=== PATIENT | female | born 1995 | race Hispanic/Latino ===

== ENCOUNTER 2017-11-30 04:13 | Inpatient (IN) | payer OTHER ==
[2017-11-29 13:24] LABS: RPR Titer ND
[2017-11-29 13:27] LABS: Urine Appearance CLOUDY; Urine Bilirubin NEGATIVE (NEG); Urine Blood NEGATIVE (NEG); Urine Color YELLOW; Urine Glucose NEGATIVE (NEG); Urine Protein NEGATIVE (NEG); Urine Specific Gravity 1.025 (1.005-1.030); Urine Urobilinogen 0.2 mg/dL (0.2-1.0); Urine pH 5.5 (5.0-7.0)
[2017-11-29 13:33] LABS: Absolute Lymphocytes (CBC) 1.8 K/uL (0.7-4.9); Absolute Monocytes 0.5 K/uL (0.1-1.3); Absolute Neutrophil 7.7 K/uL (1.8-8.0); Basophils % 0.4 % (0-1.3); Eosinophils % 0.5 % (0-4.4); Hematocrit 33.2 % (36.0-45.0); Lymphocytes % 17.6 % (15.3-44.8); MCH 28.3 pg (27.0-35.0); MCV 82.3 fL (80-100); MPV 9.8 fL (7.6-11.3); Monocytes % 5.4 % (3.3-12.3); RBC Red Blood Cell Count 4.03 M/uL (3.86-4.86)
[2017-11-29 13:33] LABS: Urine Microscopic Reflex NO UMIC
[2017-11-29 13:37] LABS: Protime INR 1.05
[2017-11-30] MEDS ORDERED: Ringers Lactate 1,000 ML IV PRN (04:44)
[2017-11-30] MEDS ORDERED: CEFAZOLIN 2 GM in NA CHLORIDE 0.9% 100 ML IVPB ONE (04:46)
[2017-11-30] MEDS ORDERED: CARBOPROST TROME 250 MCG/ML IM ONE (04:49)
[2017-11-30] MEDS ORDERED: METHYLERGONOVINE 0.2MG/ML AMP IM ONE (04:49)
[2017-11-30 04:54] VITALS: BMI 63.4
[2017-11-30] MEDS ORDERED: FAMOTIDINE 20 MG/2 ML VIAL IV ONE (05:00)
[2017-11-30] MEDS ORDERED: NA CIT/CITRIC AC 30 ML ORAL UDC PO ONE (05:00)
[2017-11-30] MEDS ORDERED: Ringers Lactate 1,000 ML IV SCH (05:00)
[2017-11-30] MEDS ORDERED: METOCLOPRAMIDE 10 MG/2mL INJ IV SCH (05:00)
[2017-11-30] MEDS ORDERED: CEFAZOLIN/SWI 2gm 2 GM/20 ML SYR ONE (05:09)
[2017-11-30] MEDS ORDERED: EPHEDRINE SULF 50 MG/ML SYR ONE (06:57)
[2017-11-30] MEDS ORDERED: MORPHINE SULFATE/PF 1 MG/ML (10 ML AMP) ONE (06:57)
[2017-11-30] MEDS ORDERED: OXYTOCIN 10 UNIT/ML ML IV ONE ×2 (06:57→08:14)
[2017-11-30] MEDS ORDERED: NS 0.9% VIAL 10 ML ONE (06:58)
[2017-11-30] MEDS ORDERED: BUPIVACAINE 0.75% (PF) 2 ML SP ONE (07:35)
[2017-11-30] MEDS ORDERED: LIDOCAINE 1% MPF 5 ML VIAL ONE (07:35)
[2017-11-30] MEDS ORDERED: MIDAZOLAM HCL 2 MG/2 ML INJ ONE (07:54)
[2017-11-30] MEDS ORDERED: KETAMINE HCL 500 MG/5 ML VIAL ONE (07:58)
--- NOTE | 2017-11-30 09:08 | RAD REPORT ---
EXAM DESCRIPTION: RAD - Abdomen Single View - 11/30/2017 4:38 am CLINICAL HISTORY: positioning COMPARISON: None. FINDINGS: Single gestation is identified. Positioning is breech with spine to the maternal right.
[2017-11-30] MEDS ORDERED: DOCUSATE NA/SENNA CONC 1 TAB PO PRN (09:25)
[2017-11-30] MEDS ORDERED: ONDANSETRON 4 MG (ODT) TAB PO PRN ×2 (09:25→14:28)
[2017-11-30] MEDS ORDERED: ACETAMINOPHEN 500 MG TAB PO PRN ×2 (09:25→14:28)
[2017-11-30] MEDS ORDERED: Oxycodone HCl/Acetaminophen 1 TAB TAB PO PRN ×4 (09:25→14:28)
[2017-11-30] MEDS ORDERED: BISACODYL 10 MG RECTAL SUPP RECT PRN ×2 (09:25→14:28)
[2017-11-30] MEDS ORDERED: D5LR 1,000 ML IV SCH (10:00)
--- NOTE | 2017-11-30 11:13 | OP ---
Surgeon: Wilson Castrejon MD Pin Ball Machine Mechanic: Payam Huddleston MD. Anesthesiologist: Dr. Calero. Indications: A 21-year-old, primigravida, 39 weeks 2 days, breech presentation, suspected macr osomia. Full preoperative counseling concerning procedure and possible complications including infec tion, blood loss, anesthetic complications, injury to bladder, bowel, ureter, postoperative complicat ions, clots in the legs. The patient knows fully well this does not constitute all the possible prob lems that could occur during or following surgery and knows because of her large size, she has increa sed risk for all of these complications. Anesthesia: Spinal block. Description Of Procedure: After prepping and draping, timeout was performed. A Pfannenstiel incisio n was created. Incision was carried to the fascia. The fascia was incised and incision carried martin sversely bilaterally. Anterior and posterior fascial planes were developed with both blunt and sharp dissection. The underlying rectus muscle was . Peritoneum entered bluntly. Low transvers e uterine incision created. A 9 pounds 5 ounce male infant was delivered. Apgars estimated to be 7 and 9 at 1 and 5 minutes. Cord blood specimen was obtained. The placenta was removed manually. Thornton rajan cleared of clot and blood and exteriorized. Mild uterine hypotonus. A 0.2 mg of Methergine IM. Estimated blood loss during the procedure 1100 cc. Cervical os dilated with ring clamp. Uterus fady sed with a running-locked stitch of 1 chromic followed by running-locked sutures on the right angle f or complete hemostasis. Gutters cleared of clot and blood. Inspection of suture line showed no furt her bleeding. The fascia was closed with 1 PDS running from either angle to the midline. Subcutaneo us tissue was closed with 2-0 plain. Absorbable ana paula placed and then metal ana paula. The patient had been given 2 g of Ancef prior to the procedure. Tolerated all procedures well. Transferred back to her room in good condition. Final Diagnoses: Term intrauterine 39 weeks 2 days, breech presentation, primary section, low transverse cervical, mild uterine hypertonicity, spinal block anesthesia. DAINEL/MONICA Voice ID: [id number] Report ID: [id number]
[2017-11-30] MEDS ORDERED: DIPHENHYDRAMINE 25 MG TAB/CAP PO PRN (14:28)
[2017-11-30] MEDS ORDERED: KETOROLAC 30 MG/ML INJ IM PRN (14:28)
[2017-11-30] MEDS ORDERED: ONDANSETRON 4 MG/2 ML VIAL IV PRN (14:28)
[2017-11-30] MEDS ORDERED: D5LR 1,000 ML with OXYTOCIN 20 UNIT IV SCH ×2 (15:00)
[2017-11-30] MEDS ORDERED: OXYTOCIN/LR 20 UNIT/1,000 ML BAG IV SCH (15:00)
[2017-11-30] MEDS ORDERED: CEFAZOLIN/SWI 2gm 2 GM/20 ML SYR IV ONE (16:00)
[2017-11-30] MEDS: KETOROLAC 30 MG/ML INJ IV PRN (18:00)
[2017-11-30] MEDS ORDERED: Ringers Lactate 2,000 ML IV ONE (18:18)
[2017-12-01 00:08] LABS: RPR (Rapid Plasma Reagin) NON-REACT (NON-REACT)
[2017-12-01] MEDS: KETOROLAC 30 MG/ML INJ IV PRN (04:20)
[2017-12-01] MEDS ORDERED: IBUPROFEN 400 MG TAB PO PRN (09:03)
[2017-12-01] MEDS: IBUPROFEN 200 MG TAB PO PRN ×3 (10:00→22:30)
[2017-12-01] MEDS: MAGNESIUM HYDROXIDE 8% 30 ML PO PRN ×2 (11:55→22:30)
--- NOTE | 2017-12-01 11:58 | PN ---
Postoperatively, the patient has done quite well. H and H with expected change. The patient has alr pradeep ambulated. We will discontinue Durhma and IV. I stressed her the importance of ambulation since she is a large woman. Here in the hospital and at home, she needs to continue to ambulate. We will begin p.o. intake. Today, she is not reporting any problems. She has had her Tdap immunization. N o postspinal block problems. If she continues good progress, we will send her home tomorrow. Full p ost dismissal instructions given. We will go over that again tomorrow. DANIEL/MONICA Voice ID: [id number] Report ID: [id number]
[2017-12-02 03:29] LABS: HBsAG Nonreactive (Nonreactive)
[2017-12-02] MEDS: IBUPROFEN 200 MG TAB PO PRN (04:35)
[2017-12-02 08:45] VITALS: BP 144/72; TEMP 97.8
--- NOTE | 2017-12-02 11:51 | PN ---
The patient has done well since surgery. She has had occasional blood pressures that are elevated, b ut she thinks it is when she is hurting, I tend to agree. We will take her blood pressures a couple more times this morning before she is dismissed, and if they are elevated, may put her on phenobarbit al or see her in the office in the next 48 hours to see if the blood pressures continue to elevate an d she has no ROCK CUTTER symptoms. She is dismissed with tramadol for analgesia what she requested pain medi cines. She is to be seen in my office Thursday for staple removal or sooner if she has a fever, severe pain, heavy bleeding, ROCK CUTTER symptoms or any other type of problems. She is Rh positive, immune to Rub marlon. She has had her Tdap immunization. She has no post spinal block problems. Final Diagnoses: Term intrauterine at 39 weeks 2 days, breech presentation, suspected ceph alopelvic disproportion plus baby breech, primary section, spinal block anesthesia, mild salbador rine hypotonus. DANIEL/MONICA Voice ID: [id number] Report ID: [id number]
== END 2017-12-02 08:45 | disposition home or self-care (01) | DRG 765 ==
LOC: 2ND-WC 04:13
PROVIDERS: ADMIT Specialist; ATTEND Specialist
PROC: 10D00Z1 Extraction of Products of Conception, Low, Open Approach (ICD-10-PCS; principal; 2017-11-30 07:30)
DX: O32.1XX0 Maternal care for breech presentation, not applicable or unspecified (principal); Z68.44 Body mass index [BMI] 60.0-69.9, adult; O36.63X0 Maternal care for excessive fetal growth, third trimester, not applicable or unspecified; O99.214 Obesity complicating childbirth; E66.01 Morbid (severe) obesity due to excess calories; O62.2 Other uterine inertia; Z3A.39 39 weeks gestation of pregnancy; Z37.0 Single live birth; O33.9 Maternal care for disproportion, unspecified
CPT/HCPCS: 36415; 74018; 81003; 85014; 85025; 85610; 85730; 86592; 86850; 86900; 86901; 87340; 88307; J0690; J2210; J2250; J2590; J2765

== ENCOUNTER → 2023-04-24 | Emergency (ER) | payer OTHER ==
--- OUTSIDE RECORDS SUMMARY | 2023-04-24 22:51 | XMS REPORT | Continuity of Care Document ---
Author Name Unknown Address [address] [place] [address] [facility] Address [address] [place] [address] Care Team Providers Care Theatre Director Name Role Phone [facility] Attending Clinician Sherlyn mcdaniels [email or web address] Attending Clinician Unavail able ILIA ST Attending Clinician Hellenvai lable [email or web address] Admitting Clinician Unavail able ILIA ST Admitting Clinician Sherlyn mcdaniels Payers Payer Name Policy Type Policy Number Effective Date Expirati on Date Source [facility] [id number] 2017 00:00:00 2024 00:00:00 [facility] [id number] 2017 00:00:00 Encounters Start Date/Time End Date/Time Encounter Type Admission Type Attending Clinicians Care Facility Care Department Encounter ID Source 2021-07-24 01:05:[address] [facility] [id number] [facility] 2021-07-16 09:13:00 2021-07-16 09:13:00 Outpatient [email or web address] [place] PRIV PRIV [id number] [facility] 2021-04-24 07:13:00 2021-04-25 15:40:[address] [facility] [id number] [facility] 2021-02-15 06:05:00 2021-02-15 06:05:[address] [facility] JEANNET[facility] [address] [facility] l
--- NOTE | 2023-04-24 23:38 | ER ---
Nurse's Notes [facility] Name: Rin Marks Age: 27 yrs Sex: Female : 1995 Arrival Date: 04/24/2023 Time: 22:47 Bed 12 Private MD: Diagnosis: Laceration without foreign body of finger without damage to nail Presentation: 04/24 23:13 Chief complaint: Patient states: she was cooking dinner and cut the tip of her right me1 5th finger and is concerned because she cant get it to stop bleeding. Coronavirus screen: Vaccine status: Patient reports receiving the 2nd dose of the covid vaccine. Ebola Screen: No symptoms or risks identified at this time. Initial Sepsis Screen: Does the patient meet any 2 criteria? No. Patient's initial sepsis screen is negative. Does the patient have a suspected source of infection? No. Patient's initial sepsis screen is negative. Risk Assessment: Do you want to hurt yourself or someone else? Patient reports no desire to harm self or others. Onset of symptoms was April 24, 2023 at 19:00. 23:13 Method Of Arrival: Ambulatory [facility] 23:13 Acuity: NANDO 4 me1 Triage Assessment: 23:15 General: Appears comfortable, obese, well developed, well nourished, Behavior is calm, me1 cooperative, appropriate for age, Reports cut the tip of her right 5th finger while cooking dinner tonight at about 7 pm. Unable to get it to stop bleeding. Pain: Complains of pain in left little finger Pain does not radiate. Pain currently is 3 out of 10 on a pain scale. Quality of pain is described as stinging, Pain began suddenly, Is continuous. Neuro: Level of Consciousness is awake, alert, obeys commands, Oriented to person, place, time, situation, Appropriate for age. Cardiovascular: Capillary refill < 3 seconds Patient's skin is warm and dry. Respiratory: Airway is patent Respiratory effort is even, unlabored, Respiratory pattern is regular, symmetrical. Derm: Wound noted left little finger Wound is laceration. Historical: - Allergies: 23:15 No Known Allergies; me1 - PMHx: 23:15 Hypothyroidism; me1 - PSHx: 23:15 section; Tonsillectomy; Adenoid excision; gastric bypass; me1 - Immunization history:: Adult Immunizations up to date. - Social history:: Smoking status: Patient denies any tobacco usage or history of. Screenin:36 [facility] ED Fall Risk Assessment (Adult) History of falling in the last 3 months, me1 including since admission No falls in past 3 months (0 pts) Confusion or Disorientation No (0 pts) Intoxicated or Sedated No (0 pts) Impaired Gait No (0 pts) Mobility Assist Device Used No (0 pt) Altered Elimination No (0 pt) Score/Fall Risk Level 0 - 2 = Low Risk Maintained a safe environment, Provided non-skid footwear, Hourly rounding (assess needs \T\ fall precautionary measures) done. Abuse screen: Denies threats or abuse. Nutritional screening: No deficits noted. Tuberculosis screening: No symptoms or risk factors identified. Assessment: 23:36 General: see triage assessment.. me1 Vital Signs: 23:13 BP 114 / 64; Pulse 63; Resp 16; Temp 98.3(O); Pulse Ox 100% on R/A; Weight 102.06 kg; me1 Height 5 ft. 1 in. ; Pain 3/10; 23:58 BP 115 / 69; Pulse 70; Resp 18; Pulse Ox 100% on R/A; me1 23:13 Body Mass Index 42.51 (102.06 kg, 154.94 cm) me1 23:13 Pain Scale: Adult me1 ED Course: 22:52 Patient arrived in ED. gm2 22:54 Allison Carlin [facility]-C [facility] sb4 22:54 Harlan Hair MD is Attending Physician. sb4 23:02 Jennifer Wang, RN is Primary Nurse. me1 23:15 Triage completed. me1 23:15 Arm band placed on Patient placed in waiting room. me1 23:36 Patient has correct armband on for positive identification. Bed in low position. Call me1 light in reach. Side rails up X 1. Provided Education on: POC. Verbalized understanding. . 23:36 No provider procedures requiring assistance completed. Patient did not have IV access me1 during this emergency room visit. Administered Medications: No medications were administered Medication: 23:36 VIS not applicable for this client. me1 Outcome: 23:37 Discharge ordered by . sb4 23:58 Discharged to home ambulatory, with family, me1 23:58 Condition: stable 23:58 Discharge instructions given to patient, family, Instructed on discharge instructions, follow up and referral plans. Demonstrated understanding of instructions, follow-up care, 23:59 Patient left the ED. me1 Signatures: Allison Carlin PA-C PA-C sb4 Jennifer Wang RN RN me1 Rosalie Godinez gm2
--- NOTE | 2023-04-24 23:38 | EDPHYS ---
Physician Documentation [facility] Name: Rin Marks Age: 27 yrs Sex: Female : 1995 Arrival Date: 04/24/2023 Time: 22:47 Bed 12 Private MD: ED Physician Harlan Hair HPI: 04/24 23:38 This 27 yrs old Female presents to ER via Ambulatory with complaints of Finger sb4 laceration. 23:39 The patient has a laceration related to: cooking, from a knife, occurred at home, and sb4 there are no complicating factors. The injury was accidental. The laceration(s) is(are) located on the left little finger. Onset: The symptoms/episode began/occurred 4 hour(s) ago. Associated signs and symptoms: Pertinent positives: heavy bleeding, Pertinent negatives: deformity, dizziness, loss of consciousness, numbness distal to injury, suspected foreign body. The patient has not experienced similar symptoms in the past. The patient has not recently seen a physician. Historical: - Allergies: 23:15 No Known Allergies; me1 - PMHx: 23:15 Hypothyroidism; me1 - PSHx: 23:15 section; Tonsillectomy; Adenoid excision; gastric bypass; me1 - Immunization history:: Adult Immunizations up to date. - Social history:: Smoking status: Patient denies any tobacco usage or history of. ROS: 23:39 Constitutional: Negative for fever, chills, and weight loss, sb4 23:39 Skin: Positive for laceration(s), of the left little finger, 23:39 All other systems are negative, Exam: 23:39 Constitutional: This is a well developed, well nourished patient who is awake, alert, sb4 and in no acute distress. Head/Face: Normocephalic, atraumatic. Eyes: Extra-ocular motions intact. Periorbital areas with no swelling, redness, or edema. ENT: Mucous membranes moist. MS/ Extremity: Pulses equal, no cyanosis. Neurovascular intact. Full, normal range of motion. Neuro: Awake and alert, GCS 15, oriented to person, place, time, and situation. Motor strength 5/5 in all extremities. Sensory grossly intact. 23:39 Skin: injury, laceration(s), the wound is approximately 1.5 cm(s), with a depth of .5 cm(s), of the palmar aspect of distal phalanx of left little finger, that can be described as clean, no foreign body, linear, with moderate bleeding, Vital Signs: 23:13 BP 114 / 64; Pulse 63; Resp 16; Temp 98.3(O); Pulse Ox 100% on R/A; Weight 102.06 kg; me1 Height 5 ft. 1 in. ; Pain 3/10; 23:58 BP 115 / 69; Pulse 70; Resp 18; Pulse Ox 100% on R/A; me1 23:13 Body Mass Index 42.51 (102.06 kg, 154.94 cm) me1 23:13 Pain Scale: Adult me1 Laceration: 23:39 Wound Repair of 1.5cm ( 0.6in ) subcutaneous laceration to palmar aspect of distal sb4 phalanx of left little finger. Distal neuro/vascular/tendon intact. Anesthesia: Digital block administered with 5 mls of 1% lidocaine. Wound prep: Moderate cleansing, Extensive cleansing with betadine, Wound irrigation with saline by me, Wound explored, Copious irrigation. Skin closed with 2 5-0 Prolene using simple sutures and sterile technique. Dressed with pressure dressing. Patient tolerated well. MDM: 23:08 Patient medically screened. sb4 23:39 Differential diagnosis: superficial laceration, tendon injury, vascular injury. Data sb4 reviewed: vital signs, nurses notes, I have discussed the patient's presentation/case with the attending Emergency Department Physician; and as a result, I will discharge patient. Test considered but Not performed: X-ray: no fracture or foreign body suspected, wound explored . Counseling: I had a detailed discussion with the patient and/or guardian regarding the historical points, exam findings, and any diagnostic results supporting the discharge/admit diagnosis, the need for outpatient follow up, 10-14 days for suture removal. ED course: received tdap 1 year ago. Administered Medications: No medications were administered Disposition Summary: 04/24/23 23:37 Discharge Ordered Notes: Location: Home sb4 Problem: new sb4 Symptoms: have improved sb4 Condition: Stable sb4 Diagnosis - Laceration without foreign body of finger without damage to nail sb4 Followup: sb4 - With: Private Physician - When: 10 - 14 days - Reason: Staple/Suture removal Discharge Instructions: - Discharge Summary Sheet sb4 - Laceration Care, Adult, [id number] sb4 Forms: - Medication Reconciliation Form sb4 - Thank You Letter sb4 - Antibiotic Education sb4 - Prescription Opioid Use sb4 - Patient Portal Instructions sb4 - Leadership Thank You Letter sb4 Signatures: Allison Carlin PA-C PA-C sb4 Jennifer Wang RN RN me1
[2023-04-25 00:35] VITALS: TEMP 98.3; O2SAT 100
[2023-04-25 00:43] VITALS: BP 115/69
== END ==
LOC: ER 22:47
PROC: 0HQGXZZ Repair Left Hand Skin, External Approach (ICD-10-PCS; principal; 2023-04-24)
DX: S61.217A Laceration without foreign body of left little finger without damage to nail, initial encounter (principal)
CPT/HCPCS: 99282